=== PATIENT | female | born 1930 | race Caucasian/White ===

== ENCOUNTER 2018-06-26 10:51 | Emergency (ER) | payer BC ==
[~2018-06-26] VITALS: Ht 162.6 cm; Wt 72.6 kg
[2018-06-26 10:51] VITALS: BP_SYST 192
[~2018-06-26 10:51] MED LIST: ALPR0.25 PO; BRIN10DR EACH EYE; MELA3TAB PO; PANT20TA2 PO; SIMV20TA2 PO; SYN50 PO; [UNRECOGNIZED DRUG - OTHER] BOTH EYES; [UNRECOGNIZED DRUG - OTHER] BOTH EYES
[2018-06-26 12:01] LABS: BASOPHILS # (AUTO) 0.1 K/uL (0.0-0.2); BASOPHILS % (AUTO) 0.9 % (0.0-2.0); EOSINOPHILS # (AUTO) 0.1 K/uL (0.0-0.4); EOSINOPHILS % (AUTO) 1.3 % (0.0-4.0); HEMATOCRIT 44.8 % (36-48); HEMOGLOBIN 14.4 g/dL (12.0-16.0); LYMPHOCYTES % (AUTO) 14.5 % (20.5-51.5); MEAN CORPUSCULAR HEMOGLOBIN 31 pg (27-31); MEAN CORPUSCULAR HGB CONC 32 % (32-36); MEAN CORPUSCULAR VOLUME 96 fL (79.0-98.0); MONOCYTES # (AUTO) 0.3 K/uL (0.0-1.0); MONOCYTES % (AUTO) 3.8 % (1.7-9.3); NEUTROPHILS # (AUTO) 5.7 K/uL (1.8-7.7); NEUTROPHILS % (AUTO) 79.5 % (40.0-70.0); PLATELET COUNT (AUTO) 264 K/uL (130-430); RED BLOOD CELL COUNT(AUTO) 4.66 MIL/uL (4.2-6.2); RED CELL DISTRIBUTION WIDTH 12.9 % (9.0-15.0); WHITE BLOOD COUNT (AUTO) 7.2 K/uL (4.8-10.8)
[2018-06-26 12:14] LABS: ANION GAP 12 (5-15); CALCIUM 9.6 mg/dL (8.4-11.0); CHLORIDE 101 mmol/L (98-107); CREATININE 0.65 mg/dL (0.55-1.30); GLUCOSE 116 mg/dL (70-99); POTASSIUM 3.9 mmol/L (3.5-5.1); SODIUM SERUM 135 mmol/L (136-145); UREA NITROGEN, BLOOD 14 mg/dL (8-21)
[2018-06-26 12:29] LABS: ALANINE AMINOTRANSFERASE 24 U/L (12-78); ALBUMIN 4.1 g/dL (3.4-4.8); ASPARTATE AMINOTRANSFERASE 22 U/L (10-37); TOTAL BILIRUBIN 1.1 mg/dL (0.0-1.0)
[2018-06-26 13:30] LABS: BILIRUBIN,URINE NEGATIVE (NEGATIVE); BLOOD, URINE NEGATIVE (NEGATIVE); CLARITY/URINE CLEAR (CLEAR); COLOR,URINE YELLOW (YELLOW); GLUCOSE,URINE NEGATIVE (NEGATIVE); KETONES,URINE TRACE (NEGATIVE); LEUKOCYTE ESTERASE ,URINE TRACE (NEGATIVE); NITRITE, URINE NEGATIVE (NEGATIVE); PH,URINE 7.5 (5.0-8.0); PROTEIN URINE NEGATIVE (NEGATIVE); UROBILINOGEN,URINE 0.2 (0.2-1.0)
[2018-06-26 13:38] LABS: BACTERIA,URINE RARE /HPF (None Seen); MUCUS,URINE None Seen /LPF (None Seen); RBC,URINE 0-3 /HPF (0-3); YEAST,URINE None Seen /HPF (None Seen)
[2018-06-26 15:48] VITALS: BP_SYST 160
== END 2018-06-26 15:49 | disposition home or self-care (01) ==
LOC: SED 10:51
DX: R53.1 Weakness (principal); N39.0 Urinary tract infection, site not specified; K21.9 Gastro-esophageal reflux disease without esophagitis; E03.9 Hypothyroidism, unspecified; E78.00 Pure hypercholesterolemia, unspecified; F41.8 Other specified anxiety disorders; Z90.49 Acquired absence of other specified parts of digestive tract; Z90.710 Acquired absence of both cervix and uterus; Z79.899 Other long term (current) drug therapy; Z88.5 Allergy status to narcotic agent; Z91.048 Other nonmedicinal substance allergy status
CPT/HCPCS: 36415; 71045; 80053; 81000-TC; 83605; 84484; 85025; 93005; 99285

== ENCOUNTER 2018-08-28 20:12 | Inpatient (IN) | payer BC ==
[~2018-08-28] VITALS: Ht 160 cm; Wt 70.3 kg
[2018-08-28 20:13] VITALS: BP_SYST 131
--- NOTE | 2018-08-28 20:13 | NUR ---
Patient to ER bed 5 to gown for evaluation. Side rails up. Report given to Maritza XIONG.
--- NOTE | 2018-08-28 20:30 | NUR ---
Pt came in for nausea and vomitting which started prior to arrival. She vomitted twice and had some ABD pain. She says she has had loss of appetitie, felt weak and diarrhea. She has taken meds for her diarrhea and noticed that it has helped. Currently in the ED her pain is 3/10. No fever, chest pain, SOB, dizziness. No other complaints/injuries noted.
--- NOTE | 2018-08-28 20:42 | NUR ---
ER Dr. Watson at bedside examining patient.
[2018-08-28] MEDS ORDERED: NACL 0.9% 1,000 ML IV ONE (20:56)
[2018-08-28] MEDS ORDERED: MORPHINE 4 MG/ML INJ. SYRINGE IVP ONE (21:00)
[2018-08-28] MEDS ORDERED: ONDANSETRON HCL 4 MG/2 ML VIAL IVP ONE (21:00)
--- NOTE | 2018-08-28 21:10 | NUR ---
# 22 gauge angiocath placed to right hand. Use of asceptic technique. Opsite placed over site. Blood return noted. Blood for lab drawn from site. Flushed with 10 cc of normal saline. No evidence of infiltration noted. Patient tolerated well.
--- NOTE | 2018-08-28 21:14 | NUR ---
Pt medicated with zofran, morphine and IV fluids per MD order. Tolerated well. Will cont. to monitor.
[2018-08-28 21:28] LABS: PROTHROMBIN TIME 9.9 SECS (9.5-12.5)
[2018-08-28 21:29] LABS: ANION GAP 12 (5-15); CALCIUM 9.4 mg/dL (8.4-11.0); CHLORIDE 98 mmol/L (98-107); CREATININE 0.61 mg/dL (0.55-1.30); GLUCOSE 138 mg/dL (70-99); SODIUM SERUM 131 mmol/L (136-145); UREA NITROGEN, BLOOD 12 mg/dL (8-21)
[2018-08-28 21:33] LABS: ALANINE AMINOTRANSFERASE 24 U/L (12-78); ALBUMIN 3.7 g/dL (3.4-4.8); AMYLASE 50 U/L (0-100); ASPARTATE AMINOTRANSFERASE 18 U/L (10-37); LIPASE 152 U/L (73-393); TOTAL BILIRUBIN 0.7 mg/dL (0.0-1.0)
[2018-08-28 21:56] LABS: BILIRUBIN,URINE NEGATIVE (NEGATIVE); BLOOD, URINE NEGATIVE (NEGATIVE); CLARITY/URINE CLEAR (CLEAR); COLOR,URINE YELLOW (YELLOW); GLUCOSE,URINE NEGATIVE (NEGATIVE); KETONES,URINE NEGATIVE (NEGATIVE); LEUKOCYTE ESTERASE ,URINE TRACE (NEGATIVE); NITRITE, URINE NEGATIVE (NEGATIVE); PH,URINE 7.5 (5.0-8.0); PROTEIN URINE NEGATIVE (NEGATIVE); UROBILINOGEN,URINE 0.2 (0.2-1.0)
[2018-08-28 22:00] LABS: RBC,URINE 0-3 /HPF (0-3)
[2018-08-28 22:01] LABS: BACTERIA,URINE MODERATE /HPF (None Seen)
[2018-08-28 22:03] LABS: BASOPHILS # (AUTO) 0.1 K/uL (0.0-0.2); BASOPHILS % (AUTO) 1.7 % (0.0-2.0); EOSINOPHILS % (AUTO) 0.2 % (0.0-4.0); HEMATOCRIT 41.7 % (36-48); HEMOGLOBIN 13.9 g/dL (12.0-16.0); LYMPHOCYTES % (AUTO) 12.6 % (20.5-51.5); MEAN CORPUSCULAR HEMOGLOBIN 32 pg (27-31); MEAN CORPUSCULAR HGB CONC 33 % (32-36); MEAN CORPUSCULAR VOLUME 96 fL (79.0-98.0); MONOCYTES # (AUTO) 0.4 K/uL (0.0-1.0); MONOCYTES % (AUTO) 5.5 % (1.7-9.3); NEUTROPHILS # (AUTO) 6.4 K/uL (1.8-7.7); PLATELET COUNT (AUTO) 259 K/uL (130-430); RED BLOOD CELL COUNT(AUTO) 4.33 MIL/uL (4.2-6.2); WHITE BLOOD COUNT (AUTO) 7.9 K/uL (4.8-10.8)
[2018-08-29] MEDS ORDERED: cefTRIAXone 1 GM IVPB PREMIX 50 ML IV ONE
--- NOTE | 2018-08-29 00:51 | NUR ---
End of life care decisions discussed with patient by Dr. Watson. Opportunity for questions and concerns addressed. Patient's code status is DNR paperwork completed and placed in chart.
[2018-08-29] MEDS ORDERED: ONDANSETRON HCL 4 MG/2 ML VIAL IVP PRN (01:30)
--- NOTE | 2018-08-29 01:40 | NUR ---
Patient will be admitted to care of Dr. Bowie. Admitted to TELE unit. Will go to room 100A. Belongings list completed. Summary report printed. Report will be given at bedside.
--- NOTE | 2018-08-29 01:50 | NUR ---
Transfer to TELE via ACLS protocol. Licensed nurse present. IV present no signs or symptoms of infiltration.
[2018-08-29 02:10] VITALS: BP_SYST 137
--- NOTE | 2018-08-29 02:10 | NUR ---
ADMISSION NOTE Received patient from ER via gurney. Patient admitted with diagnosis of UTI,DEHYDRATION. Patient is awake, alert, oriented X 4. Patient oriented to hospital room, call light, toileting, pain management and safety-teach back done. Patient informed that TRUMAN will be HER nurse and that their room number is 100A. Personal belongings checked and Belongings List documented. Call light within reach.
--- NOTE | 2018-08-29 02:15 | NUR ---
OPENING NOTE RECEIVED ENDORSEMENT REPORT FROM ADMITTING NURSE JARAMILLO AT BEDSIDE. PT IS AOX4, RESTING COMFORTABLY IN BED WITH EYES OPEN. CHEST RISE EVEN AND UNLABORED. NO SOB NOTED, NO DISTRESS NOTED. PT DENIED PAIN AT THIS TIME. PT'S IV ON RIGHT HAND 22G. IV CLEAN DRY AND INTACT. PT'S SKIN DRY, INTACT AND CLEAN. LEADS AND HEART MONITOR IN PLACE AND INTACT. VITAL SIGNS WNL. PT INSTRUCTED HOW TO USE CALL LIGHT AND ROOM PHONE, PT VERBALIZED UNDERSTANDING. PT ORIENTED TO HOSPITAL ROOM AND EDUCATED ON SAFETY, PT INSTRUCTED TO USE CALL LIGHT TO CALL FOR ASSISTANCE, PT VERBALIZED UNDERSTANDING. SAFETY MEASURES IN PLACE CALL LIGHT/ROOM PHONE WITHIN REACH, BEDSIDE TABLE WITHIN REACH, BED WHEELS LOCKED, BED IN LOWEST POSITION, BED RAILS UP X3 AND BED ALARM ON. WILL CONTINUE TO MONITOR PT AND CONTINUE POC.
[2018-08-29] MEDS ORDERED: NON-FORMULARY MEDICATION (Melatonin 1 TAB) PO PRN (02:30)
[2018-08-29] MEDS ORDERED: ALPRAZolam 0.25 MG TABLET PO PRN (02:30)
--- NOTE | 2018-08-29 03:40 | NUR ---
RN ROUNDS PT RESTING COMFORTABLY IN BED WITH EYES OPEN. CHEST RISE EVEN AND UNLABORED. NO SOB NOTED, NO DISTRESS NOTED. PT DENIED PAIN AT THIS TIME. SCHEDULED IVF ADMINISTERED AT ORDERED RATE. IVF INFUSING WELL. NO OTHER NEEDS AT THIS TIME. SAFETY MEASURES IN PLACE CALL LIGHT/ROOM PHONE WITHIN REACH, BEDSIDE TABLE WITHIN REACH, BED WHEELS LOCKED, BED IN LOWEST POSITION, BED RAILS UP X3 AND BED ALARM ON. WILL CONTINUE TO MONITOR PT AND CONTINUE POC.
[2018-08-29] MEDS: 0.45% NACL 1,000 ML IV SCH ×2 (03:45→14:42)
--- NOTE | 2018-08-29 05:12 | NUR ---
RN ROUNDS PT RESTING COMFORTABLY IN BED WITH EYES CLOSED. CHEST RISE EVEN AND UNLABORED. NO SOB NOTED, NO DISTRESS NOTED. SAFETY MEASURES IN PLACE CALL LIGHT/ROOM PHONE WITHIN REACH, BEDSIDE TABLE WITHIN REACH, BED WHEELS LOCKED, BED IN LOWEST POSITION, BED RAILS UP X3 AND BED ALARM ON. WILL CONTINUE TO MONITOR PT AND CONTINUE POC.
[2018-08-29] MEDS: LEVOTHYROXINE SODIUM 0.05 MG TABLET PO SCH (06:56)
--- NOTE | 2018-08-29 07:11 | NUR ---
CLOSING NOTE WILL ENDORSE PT REPORT TO DAY SHIFT NURSE AT BEDSIDE. PT IS AOX4, RESTING COMFORTABLY IN BED WITH EYES OPEN. CHEST RISE EVEN AND UNLABORED. NO SOB NOTED, NO DISTRESS NOTED. ALL PT'S NEEDS MET THROUGHOUT SHIFT. ALL SCHEDULED MEDICATIONS ADMINISTERED ORDERED, PT TOLERATED WELL. IVF INFUSING WELL. NO OTHER NEEDS AT THIS TIME. SAFETY MEASURES IN PLACE CALL LIGHT/ROOM PHONE WITHIN REACH, BEDSIDE TABLE WITHIN REACH, BED WHEELS LOCKED, BED IN LOWEST POSITION, BED RAILS UP X3 AND BED ALARM ON. WILL CONTINUE TO MONITOR PT AND CONTINUE POC.
[2018-08-29 07:39] LABS: BASOPHILS # (AUTO) 0.1 K/uL (0.0-0.2); EOSINOPHILS # (AUTO) 0.1 K/uL (0.0-0.4); EOSINOPHILS % (AUTO) 0.9 % (0.0-4.0); HEMATOCRIT 42.6 % (36-48); HEMOGLOBIN 14.1 g/dL (12.0-16.0); LYMPHOCYTES # (AUTO) 1.5 K/uL (1.0-5.5); LYMPHOCYTES % (AUTO) 22.3 % (20.5-51.5); MEAN CORPUSCULAR HEMOGLOBIN 32 pg (27-31); MEAN CORPUSCULAR HGB CONC 33 % (32-36); MEAN CORPUSCULAR VOLUME 96 fL (79.0-98.0); MONOCYTES # (AUTO) 0.7 K/uL (0.0-1.0); MONOCYTES % (AUTO) 10.3 % (1.7-9.3); NEUTROPHILS # (AUTO) 4.3 K/uL (1.8-7.7); NEUTROPHILS % (AUTO) 65.5 % (40.0-70.0); PLATELET COUNT (AUTO) 273 K/uL (130-430); RED BLOOD CELL COUNT(AUTO) 4.45 MIL/uL (4.2-6.2); RED CELL DISTRIBUTION WIDTH 13.6 % (9.0-15.0); WHITE BLOOD COUNT (AUTO) 6.7 K/uL (4.8-10.8)
--- NOTE | 2018-08-29 07:40 | NUR ---
INITIAL NOTE RECEIVED PATIENT FROM SOLID WASTE COLLECTOR. PATIENT IS AWAKE IN BED. RN ASSISTED WITH BEDSIDE COMMODE; MIKE WELL. DENIES PAIN. ROOM AIR. NO ACUTE DISTRESS. NO SOB. RESPIRATION EVEN AND UNLABORED. SKIN WARM AND DRY TO TOUCH. IV INTACT AND PATENT. MIKE IV FLUID ORDERED. BED IN LOW AND LOCKED POSITION. SIDERAIL UPX2. BED ALARM ON. ALL NEEDS MET. CALL LIGHT IN REACH. CONT TO MONITOR.
[2018-08-29 07:49] LABS: PROTHROMBIN TIME 9.8 SECS (9.5-12.5)
[2018-08-29 07:59] LABS: ALANINE AMINOTRANSFERASE 24 U/L (12-78); ALBUMIN 3.6 g/dL (3.4-4.8); ANION GAP 10 (5-15); ASPARTATE AMINOTRANSFERASE 19 U/L (10-37); CALCIUM 9.4 mg/dL (8.4-11.0); CHLORIDE 102 mmol/L (98-107); CREATININE 0.57 mg/dL (0.55-1.30); GLUCOSE 107 mg/dL (70-99); POTASSIUM 3.6 mmol/L (3.5-5.1); SODIUM SERUM 136 mmol/L (136-145); TOTAL BILIRUBIN 0.7 mg/dL (0.0-1.0); UREA NITROGEN, BLOOD 8 mg/dL (8-21)
[2018-08-29 08:00] VITALS: BP_SYST 157
[2018-08-29] MEDS ORDERED: PANTOPRAZOLE SODIUM 40 MG TAB PO SCH (09:00)
[2018-08-29] MEDS: DORZOLAMIDE 2% OPHTHALMIC SOLN 5ML OP SCH ×2 (09:00→20:29)
[2018-08-29] MEDS: ENOXAPARIN SODIUM 30 MG/0.3 ML SYRINGE SUBCUT SCH (09:13)
--- NOTE | 2018-08-29 09:15 | NUR ---
SEEN AND EXAMINED BY AT BEDSIDE. CONT TO MONITOR
[2018-08-29] MEDS: ACETAMINOPHEN 325 MG TABLET PO PRN ×2 (09:24→21:25)
--- NOTE | 2018-08-29 09:46 | NUR ---
CONSULTATION PAGED/CALLED Reason for Consultation: [] ABDOMINAL PAIN Person Who was Notified: [] WM Consulting Physician: [] DR RODRIGUES WEBFOCUS DEVELOPER FOR DR MCCARTHY Traffic Operations Manager Specialty: [] GI Ordering Physician: [] DR Jordan YANEZ
--- NOTE | 2018-08-29 11:15 | NUR ---
NOTE PATIENT DENIES PAIN. MOTOR AND GENERATOR BRUSH MAKER ASSISTED PATIENT TO SITTING POSITION. LUNCH SET UP BY MOTOR AND GENERATOR BRUSH MAKER. ALL NEEDS MET. CONT TO MONITOR. CALL LIGHT IN REACH.
[2018-08-29 12:13] VITALS: BP_SYST 155
--- NOTE | 2018-08-29 13:20 | NUR ---
NOTE PATIENT RESTING IN BED. AWAKE AND WAITING TO WALK WITH PHYSICAL THERAPIST. DENIES PAIN. ALL NEEDS MET. CALL LIGHT IN REACH CONT TO MONITOR.
--- NOTE | 2018-08-29 14:00 | NUR ---
P.T. PATIENT AMBULATED IN HALLWAYS WITH PHYSICAL THERAPIST USING A WALKER, MIKE WELL. PER P.T. PATIENT IS STEADY WITH WALKER. CONT TO MONITOR. CALL LIGHT IN REACH.
--- NOTE | 2018-08-29 14:45 | NUR ---
IVF CHANGED PATIENT'S IVF. HUNG NEW BAG ORDERED, MIKE WELL. IV INTACT AND PATENT. CONT TO MONITOR. CALL LIGHT IN REACH.
--- NOTE | 2018-08-29 16:40 | NUR ---
NOTE PATIENT RESTING IN BED. NOTED RISE AND FALL OF CHEST. NO S/SX PAIN. NO ACUTE DISTRESS. NO SOB. RESPIRATION EVEN AND UNLABORED. SKIN WARM AND DRY TO TOUCH. CONT TO MONITOR.
[2018-08-29 16:45] VITALS: BP_SYST 156
--- NOTE | 2018-08-29 18:40 | NUR ---
CLOSING NOTE PATIENT IS AWAKE IN BED. NO ACUTE DISTRESS. NO SOB. RESPIRATION EVEN AND UNLABORED. SKIN WARM AND DRY TO TOUCH. IV INTACT AND PATENT. MIKE IVF ORDERED. BED IN A LOW AND LOCKED POSITION. SIDERAIL UPX2. BED ALARM ON. ALL NEEDS MET. CALL LIGHT IN REACH. CONT TO MONITOR. WILL ENDORSE TO ONCOMING SHIFT.
[2018-08-29 20:00] VITALS: BP_SYST 144
--- NOTE | 2018-08-29 20:00 | NUR ---
INITIAL NOTE PATIENT CARE ENDORSED FROM DAY SHIFT. PATIENT IS AWAKE IN BED. RESPIRATIONS ARE EVEN AND UNLABORED ON ROOM AIR, NO REPORTS OF SOB. NO REPORTED SIGNS OR SYMPTOMS OF DISTRESS. SKIN WARM AND DRY TO TOUCH. IV INTACT AND PATENT W/ FLUIDS RUNNING. PATIENT EDUCATED ON SAFETY/FALL PRECAUTIONS, BED IN LOWEST POSITION WITH CALL LIGHT IN REACH. ALL NEEDS MET. WILL CONTINUE TO MONITOR.
[2018-08-29] MEDS ORDERED: cefTRIAXone 1 GM IVPB PREMIX 50 ML IV SCH (21:00)
[2018-08-29] MEDS ORDERED: SIMVASTATIN 20 MG TABLET PO SCH (21:00)
--- NOTE | 2018-08-29 22:00 | NUR ---
NURSING NOTES PT LAYING QUIETLY IN BED WITH EYES CLOSED, EASILY AROUSED. BREATHING IS EVEN AND UNLABORED. NO SIGNS OR SYMPTOMS OF DISTRESS. IV SITE DRY AND INTACT W/ ORDERED FLUIDS RUNNING. FALL/SAFETY PRECAUTIONS IN PLACE, CALL LIGHT W/IN REACH. WILL CONTINUE TO MONITOR.
--- NOTE | 2018-08-30 | NUR ---
NURSING NOTES PT RESTING IN BED WITH EYES CLOSED. BREATHING IS EVEN AND UNLABORED. NO SIGNS OF SYMPTOMS OF DISTRESS. IV SITE DRY AND INTACT W/ ORDERED FLUIDS RUNNING. FALL/SAFETY PRECAUTIONS IN PLACE, CALL LIGHT W/IN REACH. WILL CONTINUE TO MONITOR.
[2018-08-30 00:33] VITALS: BP_SYST 144
[2018-08-30] MEDS: ACETAMINOPHEN 325 MG TABLET PO PRN ×2 (03:40→09:39)
[2018-08-30] MEDS: 0.45% NACL 1,000 ML IV SCH (03:44)
--- NOTE | 2018-08-30 04:00 | NUR ---
NURSING NOTES PT AWAKE RESTING QUIETLY IN BED. BREATHING IS EVEN AND UNLABORED. NO SIGNS OF SYMPTOMS OF DISTRESS. IV SITE DRY AND INTACT W/ ORDERED FLUIDS RUNNING. REPOSITIONED FOR COMFORT. FALL/SAFETY PRECAUTIONS IN PLACE, CALL LIGHT W/IN REACH. WILL CONTINUE TO MONITOR.
[2018-08-30] MEDS: LEVOTHYROXINE SODIUM 0.05 MG TABLET PO SCH (06:06)
--- NOTE | 2018-08-30 06:37 | NUR ---
CLOSING NOTE PT IS AWAKE AND ALERT. BREATHING IS EVEN AND UNLABORED. NO SIGNS OF ACUTE DISTRESS. IV SITE IS CLEAN, DRY AND PATENT W/ ORDERED FLUIDS RUNNING. CARE NEEDS WERE PROVIDED THROUGHOUT SHIFT. SAFETY/FALL PRECAUTIONS DISCUSSED WITH THE PATIENT AND MAINTAINED THROUGHOUT SHIFT. CALL LIGHT IS WITHIN REACH. WILL ENDORSE CARE TO ONCOMING RN.
[2018-08-30] MEDS ORDERED: NA PHOS,M-B/NA PHOS,DI-BA 118 ML (FLEET ENEMA) RC ONE (07:15)
[2018-08-30 08:02] VITALS: BP_SYST 164
[2018-08-30] MEDS: ENOXAPARIN SODIUM 30 MG/0.3 ML SYRINGE SUBCUT SCH (08:09)
[2018-08-30] MEDS: DORZOLAMIDE 2% OPHTHALMIC SOLN 5ML OP SCH (08:10)
[2018-08-30] MEDS ORDERED: PANTOPRAZOLE SODIUM 40 MG/VIAL (PROTONIX) IVP SCH (09:00)
[2018-08-30] MEDS ORDERED: POLYETHYLENE GLYCOL 3350, 17 GM/ POWD.PACK PO SCH (09:00)
--- NOTE | 2018-08-30 09:00 | NUR ---
GI/CONSTIPATION Patient is constipated last bowel movement last Saturday seen and examined by Dr. Cooper earlier Miralax po given encourage to eat high fiber food, increase fluid intake , explained the need for fleet enema how medication will be given positioned left lateral tip well lubricated and inserted with out any resistance push enema slowly takes 5 minutes to push it , instruct the patient if she can hold if long the better , to bad side commode no abdominal cramping , hard stool perineal care given., tolerates well.
[2018-08-30] MEDS ORDERED: CIPR-172 PO (10:15)
[2018-08-30] MEDS ORDERED: LACT1CAP57 PO (10:16)
[2018-08-30] MEDS ORDERED: POLY17PO4 PO (10:16)
[2018-08-30 10:29] VITALS: BP_SYST 159
--- NOTE | 2018-08-30 10:50 | NUR ---
D/C Patient Patient given medication reconciliation form and D/C instructions. Exit Care provided. Patient verbalized understanding. MD discussed with patient the results and treatment provided. Ambulatory with steady gait for discharge to home. Patient in stable condition, ID band removed. IV catheter removed, intact and dressing applied, no active bleeding. Rx of CIPRO,CULTURELLE,MIRALAX given. Patient educated on pain management. All belongings sent with patient.
--- NOTE | 2018-08-30 11:00 | NUR ---
Mobility Walked to the bathroom using walker steady gait no dizziness , had soft bowel movement no abdominal cramping .
--- NOTE | 2018-08-30 11:40 | NUR ---
Patient was discharge home accompanied by the friend with all the belongings taken.
--- NOTE | 2018-09-01 14:54 | NUR ---
Discharge Planning Phoned [facility] was arranged for patient and is due to start services on 09/02/18.
== END 2018-08-30 11:40 | disposition home health service (06) | DRG 315 ==
LOC: SED 20:12 → STU 08-29 01:29
PROVIDERS: ADMIT Internal Medicine; ATTEND Internal Medicine
DX: I95.89 Other hypotension (principal); N39.0 Urinary tract infection, site not specified; E86.0 Dehydration; E03.9 Hypothyroidism, unspecified; F41.9 Anxiety disorder, unspecified; E78.5 Hyperlipidemia, unspecified; F03.90 Unspecified dementia, unspecified severity, without behavioral disturbance, psychotic disturbance, mood disturbance, and anxiety; G89.29 Other chronic pain; H40.9 Unspecified glaucoma; I10 Essential (primary) hypertension; I25.10 Atherosclerotic heart disease of native coronary artery without angina pectoris; K21.9 Gastro-esophageal reflux disease without esophagitis; K59.00 Constipation, unspecified; Z86.73 Personal history of transient ischemic attack (TIA), and cerebral infarction without residual deficits; Z90.710 Acquired absence of both cervix and uterus; Z88.8 Allergy status to other drugs, medicaments and biological substances; Z91.048 Other nonmedicinal substance allergy status; Z79.899 Other long term (current) drug therapy; E78.00 Pure hypercholesterolemia, unspecified; Z90.49 Acquired absence of other specified parts of digestive tract
CPT/HCPCS: 36415; 74018; 80053; 81000-TC; 82150-TC; 83605; 83690-TC; 85025; 85610-TC; 87040-TC; 87086; 93005; 96361; 96365; 96375; 99285; C9113; J0696; J1650; J2270; J2405